=== PATIENT | female | born 1955 | race Caucasian/White ===

== ENCOUNTER 2018-08-19 12:01 | Emergency (ER) | payer OTHER ==
[2018-08-19] MEDS: SOD CHLORIDE 0.9% 1,000 ML IV (12:27)
[2018-08-19] MEDS: HYDROmorphONE 1 MG/ML SYG IV (12:29)
[2018-08-19] MEDS: ONDANSETRON 4 MG INJ IV (12:29)
[2018-08-19] MEDS ORDERED: SILVER SULFADIAZINE 1% 400 GM CR TOP (12:30)
[2018-08-19] MEDS: SILVER SULFADIAZINE 1% 25 GM CR TOP (13:33)
== END 2018-08-19 13:45 | disposition home or self-care (01) ==
LOC: E/R 12:01
DX: T24.212A Burn of second degree of left thigh, initial encounter (principal); T21.22XA Burn of second degree of abdominal wall, initial encounter; I10 Essential (primary) hypertension; X11.8XXA Contact with other hot tap-water, initial encounter; Y92.9 Unspecified place or not applicable; Z85.3 Personal history of malignant neoplasm of breast
CPT/HCPCS: 16020; 96374; 96375; 99284-25